=== PATIENT | male | born 2000 | race Caucasian/White ===

== ENCOUNTER 2019-09-10 12:17 | Emergency (ER) | payer OTHER ==
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
--- NOTE | 2019-09-10 14:21 | CR ---
Left forearm: 2 views left forearm were obtained. Comparison: No prior forearm study. Findings: On the lateral view there is minimal irregularity within the radial head. Minimal nondisplaced radial head fracture is possible. No additional fracture or other bony abnormality is seen. Impression: 1. Findings suspicious for nondisplaced radial head fracture. Recommend follow-up study in 10-14 days to confirm or rule out. 2. Left forearm study is otherwise unremarkable. Diagnostic code #3 This report was dictated in MDT
[2019-09-10] MEDS ORDERED: Acetaminophen/oxyCODONE 325-5 MG Tab PO ONE (14:55)
[2019-09-10] MEDS ORDERED: Ibuprofen 600 MG Tab PO ONE (14:55)
[2019-09-10] MEDS ORDERED: Ondansetron 4 MG Tab.DIS PO ONE (15:08)
== END 2019-09-10 17:00 | disposition home or self-care (01) ==
LOC: JD.ED 12:17
DX: S52.125A Nondisplaced fracture of head of left radius, initial encounter for closed fracture (principal); S70.212A Abrasion, left hip, initial encounter; S60.511A Abrasion of right hand, initial encounter; S50.812A Abrasion of left forearm, initial encounter; J45.909 Unspecified asthma, uncomplicated; V19.9XXA Pedal cyclist (driver) (passenger) injured in unspecified traffic accident, initial encounter
CPT/HCPCS: 29105; 73090; 99283; A9270; 29125; 99284